=== PATIENT | female | born 1935 | race Two or more races ===

== ENCOUNTER → 2017-03-08 | Emergency (ER) | payer OTHER ==
[~2017-03-08] VITALS: Ht 154.9 cm; Wt 68.0 kg
[~2017-03-08] MED LIST: CATAPRES0.1 MG; GLIMEPIRIDE4 MG; GLUCOPHAGE XR500 MG; HYZAAR 100/25 T1 TAB; LANTUS SOLOSTAR3 ML; SIMVASTATIN20 MG
== END | disposition home or self-care (01) ==
LOC: ER 17:59
DX: R27.8 Other lack of coordination (principal); I10 Essential (primary) hypertension

== ENCOUNTER 2018-05-05 15:43 | Inpatient (IN) | payer OTHER ==
[~2018-05-05] VITALS: Ht 152.4 cm; Wt 66.7 kg
[2018-05-05] MEDS ORDERED: JANUMET XR 1001 EACH (16:21)
--- NOTE | 2018-05-05 16:21 | NUR ---
PTE REFIERE TOS CONGESTION Y DOLOR EN EL CUERPO SE ANABEL S/V Y SE UBICA EN AREA DE ESPERA
--- NOTE | 2018-05-05 18:43 | NUR ---
TA EVALUA PACIENTE Y ORDENA TX MEDICO DEL CUAL SE ORIENTA PACIENTE Y FAMILIAR.AMBOS REFIEREN ENTENDER. SE COLECTAN MUESTRAS DE LABORATORIOS Y ADMINISTRAN MEDICAMENTOS SEGIN ORDEN MEDICA SIGUIENDO MEDIDAS ASEPTICAS. SE NOTIFICA ESTUDIO DE RX A PERSONAL DE TURNO. PROCEDIMIENTOS LLEVADOS A CABO POR HORTENSIA.
== END 2018-05-09 22:05 | disposition left against medical advice (07) | DRG 202 ==
LOC: ER 15:43 → SURH 22:58
PROVIDERS: ADMIT Internal Medicine
PROC: 3E0F7GC Introduction of Other Therapeutic Substance into Respiratory Tract, Via Natural or Artificial Opening (ICD-10-PCS; principal; 2018-05-05)
PROC: BB24ZZZ Computerized Tomography (CT Scan) of Bilateral Lungs (ICD-10-PCS; 2018-05-05)
DX: J45.901 Unspecified asthma with (acute) exacerbation (principal); J16.8 Pneumonia due to other specified infectious organisms; E11.65 Type 2 diabetes mellitus with hyperglycemia